=== PATIENT | female | born 2000 | race American Indian/Alaskan Native ===

== ENCOUNTER 2022-01-05 20:48 | Emergency (ER) | payer MEDICAID ==
[2022-01-05 20:57] VITALS: BP 119/59
[2022-01-05 22:17] LABS: Basophils # (Auto) 0.1 K/mm3 (0.0-0.1); Basophils % (Auto) 0.9 % (0.0-1.8); Eosinophils % (Auto) 0.3 % (0.0-4.3); Hematocrit 25.3 % (30.3-42.9); Hemoglobin 8.7 gm/dl (10.1-14.3); Lymphocytes # (Auto) 2.5 K/mm3 (1.2-5.4); Lymphocytes % (Auto) 24.6 % (13.4-35.0); Mean Corpuscular HGB Conc 35 % (30-34); Mean Corpuscular Volume 97 fl (79-97); Monocytes # (Auto) 1.3 K/mm3 (0.0-0.8); Platelet Count 450 K/mm3 (140-440)
[2022-01-05 22:18] LABS: Red Cell Distribution Width 22.3 % (13.2-15.2)
== END 2022-01-05 23:51 | disposition home or self-care (01) ==
LOC: ED 20:48
DX: N89.8 Other specified noninflammatory disorders of vagina (principal); Z53.21 Procedure and treatment not carried out due to patient leaving prior to being seen by health care provider
CPT/HCPCS: 36415; 84702; 85025; 86900; 86901

== ENCOUNTER 2022-03-20 04:59 | Emergency (ER) | payer MEDICAID ==
[2022-03-20 05:08] VITALS: BP 118/88
[2022-03-20 05:34] LABS: Hematocrit 23.7 % (30.3-42.9); Hemoglobin 8.5 gm/dl (10.1-14.3); Mean Corpuscular HGB Conc 36 % (30-34); Mean Corpuscular Volume 95 fl (79-97); Platelet Count 437 K/mm3 (140-440); Red Blood Count 2.49 M/mm3 (3.65-5.03)
[2022-03-20 05:35] LABS: Red Cell Distribution Width 23.4 % (13.2-15.2)
[2022-03-20 05:54] LABS: Alanine Aminotransferase 33 units/L (7-56); Albumin 4.7 g/dL (3.9-5); BUN/Creatinine Ratio 20; Blood Urea Nitrogen 6 mg/dL (7-17); Calcium 9.3 mg/dL (8.4-10.2); Hemolysis Index 28
[2022-03-20 06:28] LABS: Total Cells Counted 100
[2022-03-20 06:29] LABS: Anisocytosis 2+; Basophils % (Manual) 0 % (0.0-1.8); Platelet Estimate Consistent w Auto; Sickle Cells 2+
== END 2022-03-20 14:51 | disposition left against medical advice (07) ==
LOC: ED 04:59
DX: D57.219 Sickle-cell/Hb-C disease with crisis, unspecified (principal); Z53.21 Procedure and treatment not carried out due to patient leaving prior to being seen by health care provider
CPT/HCPCS: 36415; 80053; 85007; 85025; 85045